=== PATIENT | male | born 1935 | race Caucasian/White ===

== ENCOUNTER 2020-07-03 16:21 | Emergency (ER) | payer MEDICARE, OTHER ==
[~2020-07-03] VITALS: Ht 182.9 cm; Wt 90.7 kg
[~2020-07-03 16:21] MED LIST: ZOCOR40 MG PO
[2020-07-03] MEDS ORDERED: NITROGLYCERIN0.4 MG SL (16:35)
[2020-07-03] MEDS ORDERED: CLOPIDOGREL75 MG PO (16:35)
[2020-07-03] MEDS ORDERED: ATORVASTATIN CA40 MG PO (16:35)
[2020-07-03] MEDS ORDERED: LO-DOSE ASPIRIN81 M1 PO (16:36)
== END 2020-07-03 17:40 | disposition home or self-care (01) ==
LOC: ED 16:21
DX: M25.552 Pain in left hip (principal); Z87.891 Personal history of nicotine dependence; Z88.8 Allergy status to other drugs, medicaments and biological substances; Z79.899 Other long term (current) drug therapy; Z79.82 Long term (current) use of aspirin
CPT/HCPCS: 73502; 99283-25

== ENCOUNTER 2020-08-12 18:20 | Emergency (ER) | payer MEDICARE, OTHER ==
[~2020-08-12] VITALS: Ht 182.9 cm; Wt 90.7 kg
[~2020-08-12 18:20] MED LIST changes: +ATORVASTATIN CA40 MG PO; +CLOPIDOGREL75 MG PO; +LO-DOSE ASPIRIN81 M1 PO; +NITROGLYCERIN0.4 MG SL
[2020-08-12] MEDS ORDERED: ISOSORBIDE MONO30 MG PO (19:47)
--- NOTE | 2020-08-14 21:59 | EKG ---
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
== END 2020-08-12 20:05 | disposition home or self-care (01) ==
LOC: ED 18:20
DX: R07.9 Chest pain, unspecified (principal); Z87.891 Personal history of nicotine dependence; Z88.8 Allergy status to other drugs, medicaments and biological substances; Z79.899 Other long term (current) drug therapy; Z79.82 Long term (current) use of aspirin
CPT/HCPCS: 71045; 80053; 83735; 84484; 85025; 93005; 93010; 99285-25

== ENCOUNTER 2020-09-08 13:58 | Emergency (ER) | payer MEDICARE, OTHER ==
[~2020-09-08] VITALS: Ht 182.9 cm; Wt 90.7 kg
[~2020-09-08 13:58] MED LIST changes: +ISOSORBIDE MONO30 MG PO
--- OUTSIDE RECORDS SUMMARY | 2020-09-08 14:00 | XMS ---
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 Simin has no Care Guidelines for this patient. Shannan VISIT COUNT (12 MO.) 3 [facility] [facility] TOTAL 3 NOTE: Visits indicate total known visits. ED/C VISIT TRACKING (12 MO.) 09/08/2020 13:59 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
[2020-09-08] MEDS ORDERED: PLAVIX75 MG PO (14:26)
[2020-09-08] MEDS ORDERED: CIPROFLOXACIN500 MG PO (14:26)
== END 2020-09-08 19:35 | disposition home or self-care (01) ==
LOC: ED 13:58
DX: N41.2 Abscess of prostate (principal); R33.9 Retention of urine, unspecified; Z79.899 Other long term (current) drug therapy; Z79.82 Long term (current) use of aspirin
CPT/HCPCS: 51702; 74177; 80053; 81001; 83690; 85025; 99284-25; J0696; Q9967

== ENCOUNTER 2020-09-22 05:46 | Emergency (ER) | payer MEDICARE, OTHER ==
[~2020-09-22] VITALS: Ht 180.3 cm; Wt 74.8 kg
[~2020-09-22 05:46] MED LIST changes: +CIPROFLOXACIN500 MG PO; +LEVOFLOXACIN500 MG PO; +OXYCODONE HCL5 MG PO; +PLAVIX75 MG PO
--- OUTSIDE RECORDS SUMMARY | 2020-09-22 05:50 | XMS ---
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 Care History Medical/Surgical 09/10/2020 [facility] - PATIENT HAS A FOLLOW UP APT WITH UROLOGIST DR CARMEN 09/11/2020. Shannan VISIT COUNT (12 MO.) 4 [facility] TOTAL 4 NOTE: Visits indicate total known visits. 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
== END 2020-09-22 09:42 | disposition home or self-care (01) ==
LOC: ED 05:46
DX: R31.9 Hematuria, unspecified (principal); Z87.891 Personal history of nicotine dependence; Z88.8 Allergy status to other drugs, medicaments and biological substances; Z79.899 Other long term (current) drug therapy; Z79.82 Long term (current) use of aspirin
CPT/HCPCS: 51798; 74176; 80048; 81001; 85025; 85610; 85730; 99284-25

== ENCOUNTER 2021-10-19 11:51 | Emergency (ER) | payer MEDICARE, OTHER ==
[~2021-10-19] VITALS: Ht 180.3 cm; Wt 74.8 kg
--- NOTE | 2021-10-21 08:27 | EKG ---
[facility] [address] [place] [address] Signed Sinus rhythm with 1st degree AV block Left axis deviation Inferior infarct (cited on or before 12-AUG-2020) Anteroseptal infarct (cited on or before 12-AUG-2020) Abnormal ECG When compared with ECG of 12-AUG-2020 18:24, premature atrial complexes are no longer present Confirmed by GERMAIN MILLAN MD ([id number]) on 10/21/2021 8:27:36 AM Electronically Signed By: GERMAIN MILLAN MD 10/21/21 0827 PATIENT NAME: NADER SALAS Electrocardiogram DATE OF : 33 PHYSICIAN: GERMAIN MILLAN MD REPORT #: [id number] REPORT IS CONFIDENTIAL AND NOT TO BE RELEASED WITHOUT AUTHORIZATION
--- NOTE | 2021-10-21 08:28 | EKG ---
[facility] [address] [place] [address] Signed Sinus bradycardia with 1st degree AV block Left axis deviation Inferior infarct (cited on or before 12-AUG-2020) Anteroseptal infarct (cited on or before 12-AUG-2020) Abnormal ECG When compared with ECG of 19-OCT-2021 11:52, (Unconfirmed) No significant change was found Confirmed by GERMAIN MILLAN MD ([id number]) on 10/21/2021 8:28:31 AM Electronically Signed By: GERMAIN MILLAN MD 10/21/21 0828 PATIENT NAME: NADER SALAS Electrocardiogram DATE OF : 33 PHYSICIAN: GERMAIN MILLAN MD REPORT #: [id number] REPORT IS CONFIDENTIAL AND NOT TO BE RELEASED WITHOUT AUTHORIZATION
== END 2021-10-19 16:21 | disposition home or self-care (01) ==
LOC: ED 11:51
DX: R07.2 Precordial pain (principal); Z87.891 Personal history of nicotine dependence; Z88.8 Allergy status to other drugs, medicaments and biological substances; Z79.899 Other long term (current) drug therapy
CPT/HCPCS: 36415; 71045; 80053; 83735; 84484; 85025; 85610; 93005; 93010; 99285-25

== ENCOUNTER 2022-03-14 11:04 | Emergency (ER) | payer MEDICARE, OTHER ==
[~2022-03-14] VITALS: Ht 180.3 cm; Wt 74.8 kg
[2022-03-14] MEDS ORDERED: ISOSORBIDE MONO60 MG PO (11:16)
--- NOTE | 2022-03-15 21:00 | EKG ---
[facility] [address] [place] [address] Signed Sinus bradycardia with 1st degree AV block Left axis deviation Inferior infarct , age undetermined Anterior infarct , age undetermined Abnormal ECG No previous ECGs available Confirmed by Pam Abad MD () on 03/15/2022 9:00:43 PM Electronically Signed By: PAM ABAD MD 03/15/22 2100 PATIENT NAME: NADER SALAS ILIANA Electrocardiogram DATE OF : 33 PHYSICIAN: PAM ABAD MD REPORT #: [id number] REPORT IS CONFIDENTIAL AND NOT TO BE RELEASED WITHOUT AUTHORIZATION
== END 2022-03-14 12:51 | disposition home or self-care (01) ==
LOC: ED 11:04
DX: R07.89 Other chest pain (principal); M19.90 Unspecified osteoarthritis, unspecified site; Z87.891 Personal history of nicotine dependence; Z79.899 Other long term (current) drug therapy; Z88.8 Allergy status to other drugs, medicaments and biological substances
CPT/HCPCS: 36415; 80048; 84484; 85025; 93005; 93010; 99285-25